=== PATIENT | female | born 1980 | race Caucasian/White ===

== ENCOUNTER 2024-06-02 22:50 | Emergency (ER) | payer OTHER ==
[~2024-06-02] VITALS: Ht 172.7 cm; Wt 77.1 kg
[2024-06-03] MEDS ORDERED: CLIN300C12 PO (00:10)
[2024-06-03] MEDS ORDERED: CLINDAMYCIN HCL 150 MG CAPSULE ONE (00:19)
[2024-06-03] MEDS: CLINDAMYCIN HCL 150 MG CAPSULE PO ONE (00:24)
[2024-06-03 00:28] VITALS: BP 121/80; TEMP 98.5; O2SAT 98
[2024-06-03] MEDS ORDERED: MUPI15CR TP (01:26)
== END 2024-06-03 00:28 | disposition home or self-care (01) ==
LOC: ER 22:56
DX: L02.413 Cutaneous abscess of right upper limb (principal); Z88.0 Allergy status to penicillin